=== PATIENT | female | born 1945 | race Caucasian/White ===

== ENCOUNTER → 2017-01-28 | Outpatient (CLI) | payer OTHER ==
[~2017-01-28] VITALS: Ht 167.6 cm; Wt 88.9 kg
[~2017-01-28] MED LIST: AMARYL1 MG PO; ARIMIDEX1 MG PO; CALCIUM 600 +1 EAC1 PO; CRESTOR20 MG PO; DAILY VITE1 EAC1 PO; FLAGYL500 MG PO; GLUCOPHAGE500 MG PO; IMODIUM MS REL1 EACH PO; JANUVIA25 M1 PO; LIPITOR80 MG PO; METFORMIN HCL500 MG PO; MULTIVITAMIN1 EAC2 PO; NORCO 5/3251 TABLET PO; PERCOCET 5/31 TABLET PO; PRILOSEC40 MG PO; PRINZIDE 20-121 EACH PO; PROBIOTIC1 EAC3 PO; PROTONIX40 MG PO; SERTRALINE HCL25 MG PO; VITAMIN C500 M1 PO; VITAMIN D1000 UNIT PO; VITAMIN D400 UNI1 PO; ZETIA10 MG PO; ZINC50 M1 PO; ZINC50 M2 PO; ZOFRAN8 MG PO
[2017-01-28 13:57] LABS: POINT-OF-CARE METER ID UU14107333
[2017-01-28 15:51] LABS: POINT-OF-CARE METER ID UU13113819
== END | disposition home or self-care (01) ==
LOC: AMB 13:14
PROVIDERS: Internal Medicine Gastroenterology
PROC: 0DB48ZX Excision of Esophagogastric Junction, Via Natural or Artificial Opening Endoscopic, Diagnostic (ICD-10-PCS; principal; 2017-01-28)
DX: D50.0 Iron deficiency anemia secondary to blood loss (chronic) (principal); K31.7 Polyp of stomach and duodenum; K44.9 Diaphragmatic hernia without obstruction or gangrene; K92.1 Melena; Z87.19 Personal history of other diseases of the digestive system; Z85.3 Personal history of malignant neoplasm of breast; E11.9 Type 2 diabetes mellitus without complications; Z79.84 Long term (current) use of oral hypoglycemic drugs; E78.5 Hyperlipidemia, unspecified; I10 Essential (primary) hypertension; Z90.49 Acquired absence of other specified parts of digestive tract; Z80.8 Family history of malignant neoplasm of other organs or systems; Z79.818 Long term (current) use of other agents affecting estrogen receptors and estrogen levels; Z88.0 Allergy status to penicillin; Z88.2 Allergy status to sulfonamides; Z88.8 Allergy status to other drugs, medicaments and biological substances; Z91.040 Latex allergy status; Z91.018 Allergy to other foods
CPT/HCPCS: 82948; 88305; J2250